=== PATIENT | female | born 1970 | race Caucasian/White ===

== ENCOUNTER 2017-12-09 22:15 | Emergency (ER) | payer OTHER ==
[2017-12-09] MEDS ORDERED: Sodium Chloride 0.9% 1,000 ML IV ONE (22:39)
[2017-12-09] MEDS ORDERED: Morphine Sulfate 4 mg/mL 1mL Syr IV STA ×2 (22:40→23:50)
--- NOTE | 2017-12-09 22:45 | ED Physician Chart ---
ED Chief Complaint/HPI - Patient Information Date Seen:: 12/09/17 Time Seen:: 22:30 Chief Complaint:: abdominal pain History of Present Illness:: Patient awoke at 4:30 this afternoon after having worked last night with right lower quadrant abdominal pain. No vomiting or diarrhea. 15-20 minutes ago patient felt hot, nauseated, diaphoretic with his sensation of impending syncope. Allergies:: Allergies Allergy/AdvReac Type Severity Reaction Status Date / Time cyclobenzaprine Allergy Verified 12/09/17 22:27 [From Flexeril] Vitals:: Vital Signs - 8 hr 12/09/17 22:15 Temp 97.4 F HR 97 RR 20 BP 124/86 O2 Sat % 99 Historian:: Patient Review:: Nurse's Note Reviewed ED Review of Systems - Review of Systems General/Constitutional: No fever, No chills, No weight loss, Weakness, No diaphoresis, No edema, No loss of appetite Skin: No skin lesions, No rash, No bruising Head: No headache, No light-headedness Eyes: No loss of vision, No pain, No diplopia ENT: No earache, No nasal drainage, No sore throat, No tinnitus Neck: No neck pain, No swelling, No thyromegaly, No stiffness, No mass noted Cardio Vascular: No chest pain, No palpitations, No PND, No orthopnea, No edema Pulmonary: No SOB, No cough, No sputum, No wheezing GI: Nausea, Pain G/U: No dysuria, No frequency, No hematuria Musculoskeletal: No bone or joint pain, No back pain, No muscle pain Endocrine: No polyuria, No polydipsia Psychiatric: No prior psych history, No depression, No anxiety, No suicidal ideation Hematopoietic: No bruising, No lymphadenopathy Allergic/Immuno: No urticaria, No angioedema Neurological: No focal symptoms, No weakness, No paresthesia, No headache, No seizure, No dizziness, No confusion, No vertigo, Other (sensation of impending syncope) ED Past Medical History - Past Medical History Past Medical History: No significant medical hx Family History: Diabetes Melitus, HTN Social History: Non Smoker, Other (occasional alcohol) Surgical History: Cholecystectomy, Hysterectomy, other (total hysterectomy) Psychiatricy History: None Medication: None Family Medical History - Family Member Mother History Unknown: Yes Father Hx Family Hypertension: Yes ED Physical Exam - Physical Examination General/Constitutional: Awake, Well-developed, well-nourished, Alert, No distress, GCS 15, Non-toxic appearing, Ambulatory Head: Atraumatic Eyes: Lids, conjuctiva normal, PERRL, EOMI Skin: Nl inspection, No rash, No skin lesions, No ecchymosis, Well hydrated, No lymphadenopathy ENMT: External ears, nose nl, Nasal exam nl, Lips, teeth, gums nl Neck: Nontender, Full ROM w/o pain, No JVD, No nuchal rigidity, No bruit, No mass, No stridor Respiratory: Nl effort/Exclusion, Clear to Auscultation, No Wheeze/Rhonchi/Rales Cardio Vascular: RRR, No murmur, gallop, rubs, NL S1 S2 GI: No organomegaly, Normal BS's Other GI comments:: Right lower quadrant tenderness with rebound tenderness : No CVA tenderness Extremities: No tenderness or effusion, Full ROM, normal strength in all extremities, No edema, Normal digits & nails Neuro/Psych: Alert/oriented, DTR's symmetric, Normal sensory exam, Normal motor strength, Judgement/insight normal, Mood normal, Normal gait, No focal deficits Misc: Normal back, No paraspinal tenderness ED Labs/Radiology/EKG Results - Lab Results Results: Laboratory Results - last 24 hr 12/09/17 12/09/17 12/09/17 22:55 22:55 23:25 WBC 8.8 RBC 4.87 Hgb 14.4 Hct 42.8 MCV 87.8 MCH 29.6 MCHC Differential 33.7 RDW 13.4 Plt Count 331 MPV 9.6 Neutrophils % 61.3 Lymphocytes % 27.9 Monocytes % 8.8 Eosinophils % 1.3 Basophils % 0.7 Sodium 137 Potassium 3.5 Chloride 102 Carbon Dioxide 24.7 Anion Gap 13.8 BUN 15 Creatinine 0.7 Est GFR ( Amer) > 60.0 Est GFR (Non-Af Amer) > 60.0 BUN/Creatinine Ratio 21.4 Glucose 92 Calcium 10.0 Lipase 23 Urine Source [place] Urine Color YELLOW Urine Clarity CLEAR Urine pH 5.5 Ur Specific [place] >= 1.030 Urine Protein NEGATIVE Urine Glucose (UA) NEGATIVE Urine Ketones NEGATIVE Urine Blood NEGATIVE Urine Nitrate NEGATIVE Urine Bilirubin NEGATIVE Urine Urobilinogen 0.2 Ur Leukocyte Esterase SMALL H Urine RBC 0-2 Urine WBC 0-2 Ur Epithelial Cells FEW Urine Bacteria FEW - Radiology Results Results: CT scans shows a normal appendix ED Assessment - Assessment General Assessment: at about 0108 patient states her pain has been gone for 10 minutes. Patient's daughter to drive her home. ED Septic Shock - . Is Septic Shock (SBP<90, OR Lactate>4 mmol\L) present?: No - <6hrs of presentation: Vital Signs: Vital Signs - 8 hr 12/09/17 22:15 Temp 97.4 F HR 97 RR 20 BP 124/86 O2 Sat % 99 ED Reassessment (Disposition) - Reassessment Reassessment Condition:: Unchanged - Diagnosis Diagnosis:: Viral enteritis; gastritis - Aftercare/Follow up Instructions Aftercare/Follow-Up Instructions:: Refer to Discharge Instructions - Patient Disposition Discharge/Transfer:: Home Condition at Disposition:: Stable, Improved
[2017-12-09] MEDS ORDERED: Morphine Sulfate 4 mg/mL 1mL Syr ONE ×2 (22:56→23:52)
[2017-12-09 23:06] LABS: % BASOPHILS 0.7 % (0.0-2.0); % EOSINOPHILS 1.3 % (0.0-5.0); % LYMPHOCYTES 27.9 % (20.0-50.0); % MONOCYTES 8.8 % (2.0-10.0); % NEUTROPHILS 61.3 % (40.0-80.0); BASOPHILE ABSOLUTE 0.1 Th/cumm (0-0.2); EOSINOPHILE ABSOLUTE 0.1 Th/cmm (0.1-0.4); HEMATOCRIT 42.8 % (41.0-60); HEMOGLOBIN 14.4 gm/dL (12-16); LYMPHOCYTE ABSOLUTE 2.5 Th/cmm (1.5-3.0); MEAN CELL VOLUME 87.8 fl (81-100); MEAN CORPUSCULAR HEMOGLOBIN 29.6 pg (27.0-31.0); MEAN CORPUSCULAR HGB CONC 33.7 pg (28.0-36.0); MEAN PLATELET VOLUME 9.6 fl; MONOCYTE ABSOLUTE 0.8 Th/cmm (0.3-1.0); NEUTROPHILE ABSOLUTE 5.3 Th/cmm (1.8-8.0); PLATELET COUNT 331 Th/cmm (150-400); RED BLOOD COUNT 4.87 Mil/cmm (3.80-5.10); RED CELL DISTRIBUTION WIDTH 13.4 % (11.5-20.0); WHITE BLOOD COUNT 8.8 Th/cmm (4.8-10.8)
[2017-12-09 23:22] LABS: ANION GAP 13.8 (7.0-16.0); BUN - UREA NITROGEN 15 mg/dL (7-25); CARBON DIOXIDE 24.7 mEq/L (21.0-31.0); CHLORIDE 102 mEq/L (98-107); CREATININE - SERUM 0.7 mg/dL (0.6-1.2); GFR AFRICAN-AMERICAN > 60.0 ml/min (>90); GFR NON AFRICAN-AMERICAN > 60.0 ml/min; GLUCOSE 92 mg/dL (70-105); LIPASE 23 U/L (11-82); POTASSIUM SERUM 3.5 mEq/L (3.5-5.1); SODIUM SERUM 137 mEq/L (136-145)
[2017-12-09 23:43] LABS: URINE SOURCE MIDSTREAM
[2017-12-09 23:44] LABS: URINE BILIRUBIN NEGATIVE (NEGATIVE); URINE BLOOD NEGATIVE (NEGATIVE); URINE GLUCOSE (UA) NEGATIVE (NEGATIVE); URINE KETONE NEGATIVE (NEGATIVE); URINE LEUKOCYTE ESTERASE SMALL (NEGATIVE); URINE NITRATE NEGATIVE (NEGATIVE); URINE PH 5.5 (4.6 - 8.0); URINE PROTEIN NEGATIVE (NEGATIVE); URINE UROBILINOGEN 0.2 E.U./dL (0.2 - 1.0)
[2017-12-09 23:52] LABS: URINE CLARITY CLEAR (CLEAR); URINE COLOR YELLOW
[2017-12-09 23:55] LABS: URINE BACTERIA FEW /hpf (NONE SEEN); URINE EPITHELIAL CELLS FEW /lpf (FEW); URINE RBC 0-2 /hpf (0-5); URINE WBC 0-2 /hpf (0-5)
[2017-12-09 23:56] LABS: URINE MICROSCOPIC INDICATED? YES
--- NOTE | 2017-12-10 09:03 | Diagnostic Imaging Report ---
CT abdomen and pelvis without intravenous contrast Indication: Abdominal pain Comparison: None, Technique: Axial images were obtained from the lung bases to the bilateral proximal femurs without IV contrast. Coronal reconstructions were made. total DLP: 543, CTDI 10.4 FINDINGS: Hypoventilatory and atelectatic changes of the lungs are noted. Evaluation of the solid organs is limited due to lack of IV contrast. Hypoventilatory atelectatic changes of the lung bases are seen with left basal airspace disease. Partially visualized bilateral breast implants are noted. Assessment of the solid organs is limited due to lack of IV contrast. No evidence of focal hepatic, splenic, or pancreatic lesions. No focal adrenal lesions. No evidence of hydronephrosis of focal renal lesions. There is a copious stool throughout the colon. No evidence of appendicitis. No free fluid or free air. Mild atherosclerosis is noted. Mild degenerative changes of the spine are noted. Mild degenerative changes right hip joint is also noted with subchondral cystic change measuring 5 mm along the right femoral head inferiorly. 3 mm bone island of the left femoral head is also noted. IMPRESSION: Copious stool throughout the colon. Please correlate clinically for constipation. No evidence of appendicitis. Evidence of prior cholecystectomy. Mild atherosclerosis. Faint left basal airspace disease probably related to hypoventilatory changes. Faint Infiltrate is less likely. Please correlate clinically.
== END 2017-12-10 01:49 | disposition home or self-care (01) ==
LOC: ER 22:15
DX: A08.4 Viral intestinal infection, unspecified (principal); K29.70 Gastritis, unspecified, without bleeding; Z90.49 Acquired absence of other specified parts of digestive tract; Z90.710 Acquired absence of both cervix and uterus; Z88.8 Allergy status to other drugs, medicaments and biological substances
CPT/HCPCS: 36415-UA; 80048-TC; 81001-TC; 83690-TC; 85025-TC; 96374; 96376

== ENCOUNTER 2018-10-14 12:12 | Emergency (ER) | payer OTHER ==
[2018-10-14 13:28] LABS: % BASOPHILS 0.1 % (0.0-2.0); % EOSINOPHILS 0.5 % (0.0-5.0); % LYMPHOCYTES 30.5 % (20.0-50.0); % MONOCYTES 5.3 % (2.0-10.0); % NEUTROPHILS 63.6 % (40.0-80.0); HEMATOCRIT 46.4 % (41.0-60); HEMOGLOBIN 15.3 gm/dL (12-16); LYMPHOCYTE ABSOLUTE 2.9 Th/cmm (1.5-3.0); MEAN CELL VOLUME 89.6 fl (81-100); MEAN CORPUSCULAR HEMOGLOBIN 29.5 pg (27.0-31.0); MEAN CORPUSCULAR HGB CONC 32.9 pg (28.0-36.0); MONOCYTE ABSOLUTE 0.5 Th/cmm (0.3-1.0); NEUTROPHILE ABSOLUTE 6.2 Th/cmm (1.8-8.0); PLATELET COUNT 301 Th/cmm (150-400); RED BLOOD COUNT 5.18 Mil/cmm (3.80-5.10); RED CELL DISTRIBUTION WIDTH 12.9 % (11.5-20.0); WHITE BLOOD COUNT 9.6 Th/cmm (4.8-10.8)
[2018-10-14 13:39] LABS: ANION GAP 17.5 (7.0-16.0); BUN - UREA NITROGEN 12 mg/dL (7-25); CALCIUM SERUM 11.5 mg/dL (8.6-10.3); CARBON DIOXIDE 23.9 mEq/L (21.0-31.0); CHLORIDE 101 mEq/L (98-107); CREATININE - SERUM 0.8 mg/dL (0.6-1.2); GFR AFRICAN-AMERICAN > 60.0 ml/min (>90); GFR NON AFRICAN-AMERICAN > 60.0 ml/min; GLUCOSE 99 mg/dL (70-105); POTASSIUM SERUM 3.4 mEq/L (3.5-5.1); SODIUM SERUM 139 mEq/L (136-145)
--- NOTE | 2018-10-17 15:20 | ED Physician Chart ---
ED Chief Complaint/HPI - Patient Information Date Seen:: 10/14/18 Time Seen:: 12:45 Chief Complaint:: dizziness s/p generalised tingling sensation History of Present Illness:: working sudden diffuse body parathesisi no actual loc or seisure Allergies:: Allergies Allergy/AdvReac Type Severity Reaction Status Date / Time cyclobenzaprine Allergy Verified 12/09/17 22:27 [From Flexeril] pineapple Allergy Verified 10/14/18 12:31 Historian:: Patient Review:: Nurse's Note Reviewed ED Review of Systems - Review of Systems General/Constitutional: No fever Skin: No skin lesions Head: No headache Eyes: No loss of vision ENT: No earache Neck: No neck pain Cardio Vascular: No chest pain Pulmonary: No SOB GI: No nausea, No vomiting G/U: No dysuria Musculoskeletal: No bone or joint pain Hematopoietic: No bruising Allergic/Immuno: No urticaria Neurological: No syncope ED Past Medical History - Past Medical History Past Medical History: No significant medical hx (no neuro cardiac history) Family Medical History - Family Member Mother History Unknown: Yes Father History Unknown: Yes Hx Family Hypertension: Yes ED Physical Exam - Physical Examination General/Constitutional: Awake, Well-developed, well-nourished, Alert, No distress, GCS 15, Non-toxic appearing, Ambulatory Head: Atraumatic Eyes: Lids, conjuctiva normal Skin: Nl inspection ENMT: External ears, nose nl Neck: Nontender, Full ROM w/o pain, No JVD Respiratory: Nl effort/Exclusion Cardio Vascular: RRR, No murmur, gallop, rubs, NL S1 S2 GI: No tenderness/rebounding/guarding : No CVA tenderness Extremities: No tenderness or effusion, Full ROM Neuro/Psych: Alert/oriented, DTR's symmetric, Normal sensory exam, Normal motor strength, Judgement/insight normal, Mood normal, Normal gait, No focal deficits Misc: Normal back ED Labs/Radiology/EKG Results - Lab Results Results: Laboratory Tests 10/14/18 10/14/18 13:00 13:00 WBC 9.6 RBC 5.18 H Hgb 15.3 Hct 46.4 MCV 89.6 MCH 29.5 MCHC Differential 32.9 RDW 12.9 Plt Count 301 MPV 10.0 Neutrophils % 63.6 Lymphocytes % 30.5 Monocytes % 5.3 Eosinophils % 0.5 Basophils % 0.1 Sodium 139 Potassium 3.4 L Chloride 101 Carbon Dioxide 23.9 Anion Gap 17.5 H BUN 12 Creatinine 0.8 Est GFR ( Amer) > 60.0 Est GFR (Non-Af Amer) > 60.0 BUN/Creatinine Ratio 15.0 Glucose 99 Calcium 11.5 H ED Assessment - Assessment General Assessment: hypo k and hyper calcium with paraesthesis ED Septic Shock - . Is Septic Shock (SBP<90, OR Lactate>4 mmol\L) present?: No ED Reassessment (Disposition) - Reassessment Reassessment Condition:: Improved (sp im ativan) - Diagnosis Diagnosis:: paresthesis secondary to hypercalcemia and hypo k - Aftercare/Follow up Instructions Aftercare/Follow-Up Instructions:: Counseled pt regarding lab results/diagnosis & need follow up (reccomend repeat lab and full curtis of mark calcium), Counseled pt & family regarding lab results/diagnosis & need follow up (made aware need repeat lab and have normal values) - Patient Disposition Discharge/Transfer:: Home
== END 2018-10-14 14:14 | disposition home or self-care (01) ==
LOC: ER 12:12
DX: E83.52 Hypercalcemia (principal); E87.6 Hypokalemia; R20.2 Paresthesia of skin; Z91.018 Allergy to other foods; Z88.8 Allergy status to other drugs, medicaments and biological substances
CPT/HCPCS: 99284; 93005; 36415; 85025; 80048; J2060